=== PATIENT | male | born 1945 | race Caucasian/White ===

== ENCOUNTER 2022-05-20 09:42 | Day surgery (SDC) | payer MEDICARE, OTHER, SELFPAY ==
[2022-05-20] MEDS: TETRACAINE 0.5% OPHTH 1 DROP EYE-RIGHT ×2 (10:15→10:20)
[2022-05-20] MEDS: KETOROLAC OPHTH 0.5% 1 DROP EYE-RIGHT ×3 (10:15→10:25)
--- NOTE | 2022-05-20 10:18 | SUR.PREOP ---
Patient provided home covid negative results to RN.
[2022-05-20 10:19] VITALS: BMI 29.9
[2022-05-20 10:39] VITALS: BP 182/96; PULSE 61; RESP 16; TEMP 36.6; O2SAT 97
[2022-05-20] MEDS: SODIUM CHLORIDE 0.9 % (FLUSH) 10 ML SYRINGE IVF (10:40)
--- NOTE | 2022-05-20 10:42 | SUR.PREOP ---
The eye drops brought by the patient (Ketorolac and Prednisolone and Ofloxacin) are examined and I have determined they are labeled by the patient's pharmacy for this patient as prescribed by the surgeon. The bottles are intact, recently obtained and appear to be correct.
[2022-05-20] MEDS: TETRACAINE 0.5% OPHTH 2 DROP EYE-RIGHT (10:51)
--- NOTE | 2022-05-20 10:53 | W.ANESCHARGE ---
Anesthesia Charges Start Date/Time Anesthesia Start Date: 05/20/22 Anesthesia Start Time: 10:48 Stop Date/Time Anesthesia Stop Date: 05/20/22 Anesthesia Stop Time: 11:35 Summary Extremes of Age - Over 70 or under 1: MDA
[2022-05-20] MEDS: BALANCED SALT IRRIG SOLN 15 ML EYE-RIGHT (10:56)
--- NOTE | 2022-05-20 11:09 | P.ANES_ITS ---
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
--- NOTE | 2022-05-20 11:40 | P.OPTPRC_ITS ---
Procedure Note Date of procedure: 05/20/22 Will [facility] bill your pro fee for this procedure?: Yes Procedure Description: SURGEON: Gia Jonas MD PREOPERATIVE DIAGNOSIS: 1. Mature cataract, right eye. 2. Miosis, right eye. POSTOPERATIVE DIAGNOSIS: 1. Mature cataract, right eye. 2. Miosis, right eye. NAME OF OPERATION: Phacoemulsification of cataract with posterior chamber intraocular lens implantation in the right eye with pupilloplasty. ANESTHESIA: Topical. ESTIMATED BLOOD LOSS: Less than 2 cc. COMPLICATIONS: None. PATHOLOGY SPECIMEN: None. INDICATIONS: See consult note for details. The risks, benefits and alternatives of the procedure were explained to the patient, who elected to proceed and signed informed consent to do so. PROCEDURE: The patient was brought to the pre-holding area where the right eye was identified as the operative eye. I placed my initials above this eye. The patient received eye drops consisting of 0.5% tetracaine, 1% tropicamide, 10% phenylephrine, and 0.5% ketorolac. The patient was then brought to the operating room where the right eye was again identified as the operative eye. The eye was prepped with Betadine and draped in the usual sterile ophthalmic fashion. A #15 super-sharp blade was used to create a paracentesis site. 1% non-preserved intracameral lidocaine was injected into the anterior chamber. Endocoat was injected into the anterior chamber. A 2.4 mm keratome was used to create a three-plane self-sealing incision 1 mm anterior to the temporal limbus. A #15 super-sharp blade was used to create four additional paracentesis sites. Four Grieshaber iris hooks were placed in order to stretch the iris. A cystotome was used to create an anterior capsular leaflet. The Utrata forceps were used to extend this to form a continuous curvilinear capsulorrhexis. Hydrodissection was performed. The cataract was removed with phacoemulsification using the [id number] technique. The irrigation and aspiration tip was used to remove the remaining cortex. Healon was injected into the capsular bag. An ARJUN ZCB00 intraocular lens of 17.5 diopters was injected into the capsular bag. The four Grieshaber iris hooks were removed. The irrigation and aspiration tip was used to remove the remaining viscoelastic. Miostat was injected into the anterior chamber. Balanced salt solution on a cannula was used to hydrate the wound, and the wound was found to be watertight. The pupil was noted to be round. DISPOSITION: The patient was taken to the recovery room and discharged to home in stable condition. The patient was instructed to call me or go to the emergency department with any sudden change, including dramatic loss of vision, severe pain in the eye or eyebrow region, nausea, or vomiting. The patient will follow up in the clinic tomorrow morning.
[2022-05-20 11:41] VITALS: BP 174/98; PULSE 54; RESP 16; TEMP 36.3; O2SAT 97
== END 2022-05-20 11:50 | disposition home or self-care (01) ==
PROVIDERS: PCP Family Medicine; Visit Provider Ophthalmology
PROC: (CPT 66982; principal; 2022-05-20 10:00)
DX: H25.89 Other age-related cataract (principal); H57.03 Miosis
CPT/HCPCS: 66982; 00142; 99100; A9270; J2250; J3010; V2632

== ENCOUNTER 2022-06-03 09:36 | Day surgery (SDC) | payer MEDICARE, OTHER, SELFPAY ==
[2022-06-03] MEDS: TETRACAINE 0.5% OPHTH 1 DROP EYE-LEFT ×2 (09:50→09:55)
[2022-06-03] MEDS: KETOROLAC OPHTH 0.5% 1 DROP EYE-LEFT ×3 (09:50→10:00)
[2022-06-03 09:58] VITALS: BMI 28.5
[2022-06-03] MEDS: SODIUM CHLORIDE 0.9 % (FLUSH) 10 ML SYRINGE IVF (10:09)
--- NOTE | 2022-06-03 10:12 | W.ANESCHARGE ---
Anesthesia Charges Start Date/Time Anesthesia Start Date: 06/03/22 Anesthesia Start Time: 10:38 Stop Date/Time Anesthesia Stop Date: 06/03/22 Anesthesia Stop Time: 11:15 Summary Extremes of Age - Over 70 or under 1: MDA
[2022-06-03 10:13] VITALS: BP 176/90; PULSE 55; RESP 18; TEMP 36.1; O2SAT 98
--- NOTE | 2022-06-03 10:13 | SUR.PREOP ---
The eye drops brought by the patient (Ketorolac and Prednisolone) are examined and I have determined they are labeled by the patient's pharmacy for this patient as prescribed by the surgeon. The bottles are intact, recently obtained and appear to be correct. Storm PERRY RN LEFT IOL
[2022-06-03] MEDS: TETRACAINE 0.5% OPHTH 2 DROP EYE-LEFT (10:33)
[2022-06-03] MEDS: BALANCED SALT IRRIG SOLN 15 ML EYE-LEFT (10:33)
--- NOTE | 2022-06-03 10:48 | W.ANESCHARGE ---
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
[2022-06-03 11:13] VITALS: BP 152/90; PULSE 57; RESP 16; TEMP 36.7; O2SAT 97
--- NOTE | 2022-06-03 13:52 | P.OPTPRC_ITS ---
Procedure Note Date of procedure: 06/03/22 Will [facility] bill your pro fee for this procedure?: Yes Procedure Description: SURGEON: Gia Jonas MD PREOPERATIVE DIAGNOSIS: Nuclear sclerotic cataract, left eye. POSTOPERATIVE DIAGNOSIS: Nuclear sclerotic cataract, left eye. NAME OF OPERATION: Phacoemulsification of cataract with posterior chamber intraocular lens implantation in the left eye. ANESTHESIA: Topical. ESTIMATED BLOOD LOSS: Less than 2 cc. COMPLICATIONS: None. PATHOLOGY SPECIMEN: None. INDICATIONS: See consult note for details. The risks, benefits and alternatives of the procedure were explained to the patient, who elected to proceed and sign ed informed consent to do so. PROCEDURE: The patient was brought to the pre-holding area where the left eye was identified as the operative eye. I placed my initials above this eye. The patient received eye drops consisting of 0.5% tetracaine, 1% tropicamide, 10% phenylephrine, and 0.5% ketorolac. The patient was then brought to the operating room where the left eye was again identified as the operative eye. The eye was prepped with Betadine and draped in the usual sterile ophthalmic fashion. A #15 super-sharp blade was used to create a paracentesis site. 1% non-preserved intracameral lidocaine was injected into the anterior chamber. Endocoat was injected into the anterior chamber. A 2.4 mm keratome was used to create a three-plane self-sealing incision 1 mm anterior to the temporal limbus. A cystotome was used to create an anterior capsular leaflet. The Utrata forceps were used to extend this to form a continuous curvilinear capsulorrhexis. Hydrodissection was performed. The cataract was removed with phacoemulsification using the [id number]-wvg-[id number] technique. The irrigation and aspiration tip was used to remove the remaining cortex. Healon was injected into the capsular bag. An ARJUN ZCB00 intraocular lens of 17.5 diopters was injected into the capsular bag. The irrigation and aspiration tip was used to remove the remaining viscoelastic. Balanced salt solution on a cannula was used to hydrate the wound, and the wound was found to be watertight. The pupil was noted to be round. DISPOSITION: The patient was taken to the recovery room and discharged to home in stable condition. The patient was instructed to call me or go to the emergency department with any sudden change, including dramatic loss of vision, severe pain in the eye or eyebrow region, nausea, or vomiting. The patient will follow up in the clinic tomorrow morning.
== END 2022-06-03 11:30 | disposition home or self-care (01) ==
PROVIDERS: PCP Family Medicine; Visit Provider Ophthalmology
PROC: (CPT 66984; principal; 2022-06-03 09:45)
DX: H25.12 Age-related nuclear cataract, left eye (principal)
CPT/HCPCS: 66984; 00142; 99100; A9270; J2250; J3010; V2632